=== PATIENT | male | born 1960 | race Caucasian/White ===

== ENCOUNTER → 2024-04-26 | Outpatient (CLI) | payer MEDICARE, MEDICAID, SELFPAY ==
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
== END | disposition home or self-care (01) ==
PROVIDERS: PCP Obstetrics & Gynecology; Referring Provider Obstetrics & Gynecology; Visit Provider Obstetrics & Gynecology
DX: M25.812 Other specified joint disorders, left shoulder (principal)
CPT/HCPCS: 73030

== ENCOUNTER 2024-09-13 15:26 | Emergency (ER) | payer MEDICARE, MEDICAID, SELFPAY ==
[2024-09-13 15:36] VITALS: BP 146/75; PULSE 69; RESP 20; TEMP 36.5; O2SAT 96; BMI 34.8
--- NOTE | 2024-09-13 15:39 | XR_ITS ---
Examination: CT abdomen and pelvis without contrast. Coronal 3-D reconstructions. Sagittal 2-D reconstructions. Date and time of exam:September 13, 2024 at 1606 hours INDICATIONS: Onset of bilateral flank pain today CTDI: vol (mGy): 11.5 DLP: (mGycm): 704 Technique: Axial images of the abdomen have been obtained, 3 mm slice thickness Intravenous contrast material has not been administered. Low dose protocols were performed. One or more of the following dose reduction techniques were used; automated exposure control, adjustment of the mA and/or KV according to patient size, use of iterative reconstruction technique. Findings: No focal liver or splenic lesions No gallstones No pancreatic or adrenal mass No renal or ureteral calculi, no hydronephrosis. Mild bilateral renal parenchymal scar formation Normal appendix No bowel obstruction No diverticulitis Contracted urinary bladder with wall thickening up to 5 mm No significant prostatomegaly Small fat-containing inguinal hernias Moderate osteopenia IMPRESSION: No renal or ureteral calculi, no hydronephrosis No bladder mass or bladder calculi Mild cystitis pattern. Normal appendix
--- NOTE | 2024-09-13 15:40 | PD.EDRME ---
Rapid Medical Screening Exam RME Arrival date/time: 09/13/24 15:26 This is a case of 63-year-old male who was sent by the primary care physician to rule out kidney stone history of present illness started 5 days prior to arrival in the emergency room when the patient started to have flank pain radiating to the abdomen with nausea and vomiting patient also have blood in the urine worsening of the symptoms this patient decided to start consult here in the emergency room Chief Complaint: Urogenital-Male Time Seen by Provider: 09/13/24 15:39 Vital signs: Vital Signs Temperature 97.7 F 09/13/24 15:36 Pulse Rate 69 09/13/24 15:36 Respiratory Rate 20 09/13/24 15:36 Blood Pressure 146/75 H 09/13/24 15:36 Pulse Oximetry (%) 96 09/13/24 15:36 Oxygen Delivery Method Room Air 09/13/24 15:36
[2024-09-13 16:16] LABS: Basophils % (Auto) 0 % (0-2.5); Eosinophils # (Auto) 0.2 Thou/mm3 (0.0-0.5); Eosinophils % (Auto) 2 % (0-10); Hematocrit 43.5 % (41.0-53.0); Hemoglobin 15.9 g/dL (13.5-16.0); Immature Granulocytes % (Auto) 0 % (0-0); Immature Granulocytes Auto 0.02 Thou/mm3 (0.00-0.00); Lymphocytes # (Auto) 1.7 Thou/mm3 (1.0-4.8); Lymphocytes % (Auto) 23 % (10-50); Mean Corpuscular HGB Conc 36.6 g/dl (31.0-37.0); Mean Corpuscular Hemoglobin 30.9 pg (25.0-35.0); Mean Corpuscular Volume 85 fL (80-100); Monocytes # (Auto) 0.5 Thou/mm3 (0.0-0.8); Monocytes % (Auto) 7 % (0-12); Neutrophils # (Auto) 5.1 Thou/mm3 (1.8-7.7); Neutrophils % (Auto) 67 % (37-80); Nucleated Red Blood Cell % 0 /100 WBC (0); Platelet Count 251 Thou/mm3 (140-440); RDW Standard Deviation 37.2 fL (35.1-43.9); Red Blood Count 5.15 Miln/mm3 (4.50-5.90); White Blood Count 7.5 Thou/mm3 (3.8-10.6)
[2024-09-13 16:28] LABS: Collection Type, Urine Clean Catch; Squamous Epithelial Cell,Urine 0 /hpf (0-5)
[2024-09-13 16:36] LABS: Alanine Aminotransferase 19 U/L (10-49); Albumin, Serum 4.8 gm/dL (3.4-4.8); Albumin/Globulin Ratio 2.2 (1.2-2.2); Alkaline Phosphatase 97 U/L (46-116); Anion Gap 10 (7-16); Aspartate Amino Transferase 15 U/L (0-34); BUN/Creatinine Ratio 12 Ratio (12-20); Bilirubin,Total 0.5 mg/dL (0.3-1.2); Blood Urea Nitrogen 11 mg/dL (9-23); Calcium 9.1 mg/dL (8.3-10.6); Calcium (Corrected) 9.1 mg/dL (8.5-10.1); Carbon Dioxide 21.7 mMol/L (20.0-31.0); Chloride 110 mMol/L (98-107); Creatinine (Component) 0.9 mg/dL (0.6-1.3); Estimated Creatinine Clearance 94.4 mL/min (>60); Globulin 2.2 gm/dL (2.3-3.5); Glucose 99 mg/dL (74-106); Lipase 31 U/L (12-53); Osmolality,Calculated 282 (275-295); Potassium 4.1 mMol/L (3.4-5.1); Sodium 142 mMol/L (136-145); eGFR > 60 See Note
[2024-09-13 16:55] LABS: Bilirubin,Urine Negative (Negative); Blood,Urine Negative (Negative); Clarity,Urine Clear (Clear/Hazy); Color,Urine Lt-Yellow (Lt Yel-Yel); Glucose, Urine Negative (Negative); Ketones,Urine Negative (Negative); Leukocyte Esterase,Urine Negative (Negative); Nitrite,Urine Negative (Negative); PH,Urine 5.5 (5.0-7.0); Protein,Urine Negative (Neg - Trace); RBC,Urine 2 /hpf (0-3); Specific Gravity,Urine 1.014 (1.001-1.035); Urobilinogen,Urine Negative mg/dL (0.0-1.0); WBC,Urine 1 /hpf (0-5)
--- NOTE | 2024-09-13 17:55 | PD.EDMALE ---
ED Male Genitalurinary RME/HPI General Chief complaint: Urogenital-Male Stated complaint: Blood in urine X 5 days, sent by primary M.D. Time Seen by Provider: 09/13/24 15:39 Arrival date/time: 09/13/24 15:26 RME / HPI RME / HPI Narrative: 63-year-old male who was sent by the primary care physician to rule out kidney stone history of present illness started 5 days prior to arrival in the emergency room when the patient started to have flank pain radiating to the abdomen with nausea and vomiting patient also have blood in the urine worsening of the symptoms this patient decided to start consult here in the emergency room. Patient denies any fever denies any other complaints no medications taken prior travel. Related Data Allergies Allergy/AdvReac Type Severity Reaction Status Date / Time montelukast Allergy Verified 09/13/24 15:32 Review of Systems Review of Systems Narrative Review of Systems: Review of system reviewed and within normal limits except mentioned in HPI ED Exam Narrative Physical exam: VITAL SIGNS: Reviewed. GENERAL APPEARANCE: Alert and interactive, follows commands, no acute distress, HEAD AND FACE: Non-traumatic. ENT: PERRL, pink conjunctivitis, eyelid no trauma, Mucous membrane moist. NECK: Supple, nontender, no nuchal rigidity. CHEST: No tenderness, no crepitus, no paradoxical movement, no retractions. LUNGS: Clear, well ventilated, symmetric, no rales, no wheezing, no ronchi, no stridor, good breath sounds bilaterally. HEART: Regular rate, regular rhythm, no murmur, no gallops. ABDOMEN: Soft, positive bowel sounds, nondistended, no guarding, nontender, no rebound, no masses, RECTAL: Deferred. GENITAL: Deferred. NEUROLOGICAL: Gross motor function intact sensory function intact, Appropriate for age. MUSCULOSKELETAL: low back nontender, full range of motion. EXTREMITIES: Nontender, full range of motion. SKIN: Color pink, dry, no rash, no lacerations, no abrasions, no contusions. LYMPHATICS: Deferred. Course Quality Measures none Orders Category Date Time Status CT abdomen pelvis wo con Stat Exams 09/13/24 15:39 Completed CBC Stat Lab 09/13/24 15:50 Completed Comprehensive Metabolic Panel Stat Lab 09/13/24 15:50 Completed Lipase Stat Lab 06/13/25 15:50 Completed Urinalysis Stat Lab 09/13/24 16:24 Completed Vital Signs Vital signs: Vital Signs Temperature 97.7 F 09/13/24 15:36 Pulse Rate 69 09/13/24 15:36 Respiratory Rate 20 09/13/24 15:36 Blood Pressure 146/75 H 09/13/24 15:36 Pulse Oximetry (%) 96 09/13/24 15:36 Oxygen Delivery Method Room Air 09/13/24 15:36 Urogenital - Male [facility] Narrative MDM Narrative:: 63-year-old male who was sent by the primary care physician to rule out kidney stone history of present illness started 5 days prior to arrival in the emergency room when the patient started to have flank pain radiating to the abdomen with nausea and vomiting patient also have blood in the urine worsening of the symptoms this patient decided to start consult here in the emergency room. Patient denies any fever denies any other complaints no medications taken prior travel. Patient's workup today all came back normal no sign of UTI creatinine is normal CT scan of the abdomen and pelvis also came back normal. Results discussed with the patient and family. Patient appears nontoxic and hemodynamically stable .Decision to discharge the patient. The patient/family was given an opportunity to ask questions and understood their discharge instructions. Discharge instructions specifically included follow up provider and time frame, current and/or new medications and possible side effects, indications for sooner follow up or return to the emergency department, and the expected course of current diagnosis. Patient reports feeling better as well and giving evidence of significant clinical improvement, I believe patient is now a candidate for discharge. Patient data External records reviewed:: [facility] previous records and None Clinical information provided by:: patient Social determinants that could affect healthcare access:: none Patient has the following chronic illnesses:: None How is presenting disease/condition affected by chronic disease/condition?: no chronic disease Evaluation data The following diagnostics were reviewed and interpreted by me:: lab results Lab and/or radiology exams considered but not ordered:: None Interpretation Summary: See results [facility] Medications / Prescriptions Medications or Prescriptions considered but not ordered:: None Medication administrations:: None Consultations Consultation(s) initiated? (list below): No Diagnosis Urogenital Male Differential Diagnosis: urinary tract infection and other (Kidney stones, renal colic flank pain) Most likely diagnosis given after review of the tests above:: Flank pain Admission Indicated Admission indicated?: not indicated Admission Request Was there a request for admission?: No Disposition Plan Disposition Plan: Discharge Discharge Attestation Discharge Attestation: The patient and all family members were given an opportunity to ask questions and understood the discharge instructions. Discharge instructions specifically effects, indications for sooner follow up or return to the emergency department, and the expected course of current diagnosis. Patient condition: Stable Discharge Plan Plan Patient Disposition: HOME (Self Care) Discharge Disposition comment: Stable Prescriptions/Referrals Referrals: Florentin Brannon MD [Primary Care Provider] - In 1 week Problem List Clinical Impression: Bilateral flank pain Patient/Caregiver Discharge Instructions Discharge Activity: activity as tolerated Education Materials: Understanding the Pain Response Additional Instructions: Thank you for the opportunity for serving you today. You are stable for discharged . You are advised to: Follow-up with your PCP in 1 to 2 days Return to ED for worsening of symptoms Increase oral fluids Ask your doctor to refer you to a kidney specialist as needed Print Language: Luxem[place]ish Stand Alone Forms: Laura Award Info., Patient Portal Info Letter
== END 2024-09-13 18:07 | disposition home or self-care (01) ==
PROVIDERS: Nurse Practitioner Family; Emergency Provider Emergency Medicine; PCP Internal Medicine
DX: R31.9 Hematuria, unspecified (principal); R10.9 Unspecified abdominal pain
CPT/HCPCS: 36415; 74176; 80053; 81001; 83690; 85025; 99284

== ENCOUNTER → 2024-09-19 | Outpatient (CLI) | payer MEDICARE, MEDICAID, SELFPAY ==
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
== END | disposition home or self-care (01) ==
LOC: CDIM 14:53
PROVIDERS: PCP Internal Medicine
DX: M25.812 Other specified joint disorders, left shoulder (principal)
CPT/HCPCS: 73030